=== PATIENT | female | born 1945 | race Caucasian/White ===

== ENCOUNTER 2025-04-19 22:20 | Inpatient (IN) | payer MEDICARE, OTHER, SELFPAY ==
[2025-04-19 19:39] VITALS: BP 140/93
[2025-04-19 19:41] VITALS: BP 140/93
[2025-04-19 20:00] VITALS: BP 149/67
--- NOTE | 2025-04-19 20:20 | ED.GENMED ---
History of Present Illness
General
Chief Complaint: Fall
Source: patient and group home records
Exam Limitations: none
Time Seen by Provider: 04/19/25 19:50
Nursing documentation reviewed up to this point in time: agreed with
History of Present Illness
History of Present Illness:
The patient is a pleasant 80-year-old female with a past medical history of dementia who experienced an unwitnessed fall. Patient complains of left hip pain. She denies neck pain and back pain. She denies headache. She is unable to remember what
happened. Patient appears well and comfortable.
Past History
Past History
ED Past Medical History: CVA, Hypercholesterolemia and Other (dementia)
ED Past Surgical History: Other
Social History
Tobacco: Other
Alcohol: Other
Drug: None
Personal: Other
Living: group home
Employment: Other
Family History
Family History: Other
Review of Systems
Review of Systems
Allergies reviewed?: Yes
Unable to obtain full review of systems at this time due to: dementia
All Other Systems: Not applicable (Limited due to dementia)
Musculoskeletal: Reports joint pain (Left hip)
Phy Exam
Physical Exam
Physical Exam:
Physical Exam
General: no apparent distress, not acutely ill. Atraumatic appearing face and head
Neck: supple. Nontender C-spine. Full range of neck without any sign of pain
Heart: s1/s2 regular rate and rhythm, normal chest wall tenderness. No vertebral spine tenderness
Lungs: no acute respiratory distress. clear bilaterally
Abdomen: Soft, nontender
Neuro: Alert, nonfocal, oriented to self only
Skin: no rash
Psychiatric: well kept. interactive and cooperative
Extremities: Nontender bilateral upper extremities. Left lower extremity is externally rotated and shortened
Course
Orders/Labs/Results
Orders:
Orders
04/19/25 Breakfast
Regular
At Your Request: Limited Participation
Does patient need a safe tray?: No
04/19/25 19:45
CR Hip - LT w/wo Pel 2-3 Vw* Urgent
Comment:
Reason For Exam: fall/pain
Include a pelvis x-ray?: Yes
04/19/25 20:19
Electrocardiogram (*1) Urgent
Reason for Study: PreOp
CT Head W/o Iv Contrast Urgent
Comment:
Reason For Exam: possible head injury
EKG- Treatment ONCE
04/19/25 21:11
Complete Blood Count/With Diff Urgent
Comprehensive Metabolic Panel Urgent
04/19/25 21:35
Admit/Transfer Patient As Directed
Co-Sign Provider:
Level of Care: Inpatient admission
Assign to:: Medical/Surgical
Physician / Group: [facility]
Diagnosis: Hip Fracture
Reason for Hospitalization: Hip Fracture
Expected length of stay greater than two midnights?: Yes
ELOS- Estimated Length of Stay in days: 3
I certify the patient meets the requirements for IP care: Yes
PRN Pain Medication Management As Directed
May give lesser potent ordered pain med per pt: Yes
preference::
Protocol:: Medication orders for pain may be administered in a
manner that supports deferring to patient preference
when the pt is:
- Requesting an ordered lesser potent pain medication.
Least to most potent pain medications are defined
as: acetaminophen < NSAID < tramadol < opioids
(morphine, oxycodone, hydromorphone).
- Requesting a lesser dose of the same medication IF
ORDERED.
- Requesting a less intrusive route of administration
if both routes are prescribed by the provider (PO <
IV).
04/19/25 21:36
Code Status As Directed
Resuscitation Status: Full Code
04/19/25 22:49
Acetaminophen [Tylenol] 650 mg PO Q4HPRN PRN
HYDROmorphone [Dilaudid] 0.25 mg IV Q3HPRN PRN
Melatonin 3 mg PO HS
Oxycodone [Roxicodone] 5 mg PO Q4HPRN PRN
04/19/25 22:49
ORTHOPEDIC CONSULT Routine
Consulting Provider: Marcos Morocho
Was physician already notified: Yes
Activity As Directed
Activity Level: Bedrest
Pneumatic Compression Sleeves As Directed
Type: Knee high
Vital Signs As Directed
Frequency: Per unit guidelines
DX Deep Vein Thrombosis Video Routine
04/20/25 Breakfast
NPO
Allow oral meds: Yes
Allow clear liquids: Sips of Clears
04/20/25 08:00
Docusate W/Senna [Senokot-S] 1 tablet PO BID
Donepezil HCl [Aricept] 10 mg PO DAILY
04/21/25 06:00
Basic Metabolic Panel IN AM
Complete Blood Count/No Diff IN AM
Abnormal Lab Results
04/19/25
21:11
WBC 12.1 H 10^3/uL
(4.8-10.8)
Absolute Neuts (auto) 10.5 H 10^3/uL
(1.4-6.5)
Absolute Lymphs (auto) 0.8 L 10^3/uL
(1.2-3.4)
Absolute Monos (auto) 0.8 H 10^3/uL
(0.1-0.6)
Neutrophils % 86.7 H %
(42.2-75.2)
Lymphocytes % 6.4 L %
(20.5-51.1)
Creatinine 0.5 L mg/dL
(0.6-1.0)
Glucose 167 H mg/dl
(70-99)
04/19/25 21:11
04/19/25 21:11
Vital Signs
Initial and Last Documented VS:
Initial Vital Signs
Temp Pulse Resp BP Pulse Ox
99.0 F 80 18 140/93 96
04/19/25 19:39 04/19/25 19:39 04/19/25 19:39 04/19/25 19:39 04/19/25 19:39
Last Documented Vital Signs
Temp Pulse Resp BP Pulse Ox
98.3 F 75 17 151/74 96
04/19/25 22:40 04/19/25 22:40 04/19/25 22:40 04/19/25 22:40 04/19/25 22:40
MDM/Problems Addressed
Differential Diagnosis Includes:
Closed head injury, left hip fracture, left hip contusion, pelvic fracture
MDM/Problems Addressed:
Patient presents with acute left hip pain after fall
Chronic conditions affecting care: HTN
Acute Exacerbation and/or Progression of Chronic Illness:
Patient is acutely hypertensive, likely due to anxiety being in the ED
*Radiology
Radiology exam reviewed: preliminary read by ED provider (Left hip x-ray reviewed by me. Left hip fracture seen by me) and radiology read reviewed
*Pulse Oximetry
SaO2: 96
Oxygen Mode of Delivery: Room air
Patient hypoxic: no
*EKG
Interpreted by ED Provider?: Yes
Interpretation: abnormal
Comparison EKG: no comparison EKG present
Rate: normal
Rhythm: sinus
[place]: normal axis
Interval: normal interval
QRS Pattern: normal QRS
Ischemia: non-specific ST changes
*Atmospheric Chemist Interpretation
Rate: normal
Interpretation: normal
Rhythm: sinus
*Critical Care Note
Total Time (30-74mins, 75-104mins- exclusive of procedures): Not Applicable
Data Reviewed
Source: patient and family (Spoke to son over the phone to let him know that his mom needed to be admitted for hip hip fracture and likely surgery)
Patient Management
Social determinants of health affecting care: Living situation and Strong social support
Discussion with other providers: Hospitalist and Other (Dr. Cooper from orthopedics made aware patient and fracture)
ED Attending Note
-
Portions of this chart may have been created with voice recognition software.� Occasional wrong word or��sound alike� substitutions may have occurred due to the inherent limitations of voice recognition software.
Discharge Plan
Departure
Patient Disposition: Admit
Date of Disposition: 04/19/25
Time of Disposition: 21:07
Admit to: Med/Surg
Presentation/result/management discussed w/ accepting MD/DO: Hospitalist
Patient with high blood pressure during this ER visit?: Yes
Condition: Good
Covid-19: Not Applicable
Discharge Problem:
Closed fracture of left hip
Interventions
Interventions:
*Risk Screen - Suicide Last Done: 04/19/25 19:38
*General Assessment Last Done: 04/19/25 20:02
*Neglect/Abuse Screening Last Done: 04/19/25 19:38
*ED- Fall Risk Assessment Last Done: 04/19/25 20:01
*ED COVID-19 Vaccine History Last Done: 04/19/25 20:01
*ED Influenza Vaccine History Last Done: 04/19/25 20:01
*Nursing Disposition Last Done: 04/19/25 22:45
ED-Musculoskeletal Assessment Last Done: 04/19/25 19:44
ED- Neurological Assessment Last Done: 04/19/25 19:44
ED-Skin Assessment Last Done: 04/19/25 19:44
Discharge Date and Time
Discharge Date/Time: 04/19/25 22:45
[2025-04-19 21:00] VITALS: BP 146/81
--- NOTE | 2025-04-19 21:18 | HPS.HSE ---
Addendum entered and electronically signed by Matthew Cortés DO 04/19/25 22:02:
Patient seen and examined independently. Agree with findings and plan as set forth by Erica Lennon PA-C.
Patient is an 80y F with PMH significant for senile dementia who presents to ED from local [facility] for evaluation after fall. Patient reportedly had unwitnessed fall x 2 since Sunday (when she was newly admitted to [facility]). Staff concerned for
leg-length discrepancy and patient sent to the ED for evaluation.
Patient with significant / pleasant dementia and is unable to contribute in any meaningful fashion to this history.
Ass:
Left Hip Fracture
Falls at [facility]
Senile Dementia
Plan:
Admit for further evaluation and treatment.
Only chronic health issue is dementia.
EKG / labs unremarkable.
Patient is at average risk for complications compared to an otherwise healthy individual of her advanced age.
Benefits of planned procedure outweigh the potential risks and patient is OK to proceed to OR without additional pre-op evaluation(s).
Pain control / supportive care in the interim.
Monitor for any evidence of acute delirium / agitation during hospital stay.
Post-op PT, OT, etc.
Original Note:
Family Physician
-
Family Physician: Yvette High
Chief Complaint
-
Fall with Left Hip Pain
History of Present Illness
Patient is an 80 y/o female past medical history of dementia who presents with left hip pain following a fall. Patient is unable to provide any history. She is a new resident at [facility], admitted on April 17. Patient sustained two
unwitnessed falls. She is now complaining of left hip pain, and there was concern from staff that the left leg seemed slightly shortened, [facility] Work-up in ED revealed a left hip fracture.
Medical History
Past Medical History
Past Medical History: Reports Other
Additional Past Medical History:
Dementia
Past Surgical History: Reports Other (Unknown)
Social History
Unable to obtain full social history at this time due to: Dementia
Living: Other ([facility])
Family History
Family History: Unable to Obtain
Allergies / Home Medications
Allergies reflects when Allergies were last updated in [facility].
Home Medications with original date entered in [facility]
Allergy/Medication List:
Allergies
Allergy/AdvReac Type Severity Reaction Status Date / Time
No Known Allergies Allergy Unverified 04/19/25 21:31
Home Medications
donepezil 10 mg tablet 10 mg PO DAILY 04/19/25
melatonin 3 mg tablet 3 mg PO HS 04/19/25
Review of Systems
-
Unable to obtain full review of systems at this time due to: Dementia
Physical Exam
Vital Signs
Vital Signs
Temp Pulse Resp BP Pulse Ox
99.0 F 67 14 146/81 96
04/19/25 19:39 04/19/25 21:00 04/19/25 21:00 04/19/25 21:00 04/19/25 20:20
Physical Exam
General: Comfortable and Conversant
HEENT: Anicteric and Moist mucous membranes
Respiratory: Clear and Non Labored Respirations
Cardiac: S1/S2 and Regular Rhythm
GI: Soft and Non Tender
Musculoskeletal: No Clubbing, No Cyanosis, No Edema and Other (Left leg appears slightly shortened and externally rotated)
Skin: Warm and Dry
Neuro: Awake and Alert; No Oriented
Psych: Calm
Laboratory Results
-
Laboratory Tests
04/19/25
21:11
WBC 12.1 H
Hgb 14.7
Hct 42.4
Plt Count 163
Sodium 137
Potassium 3.8
Chloride 105
Carbon Dioxide 25
BUN 13
Creatinine 0.5 L
Glucose 167 H
Hip X-Ray:
1. ACUTE NONDISPLACED SUBCAPITAL FRACTURE of the LEFT FEMORAL NECK.
2. Minimal bilateral osteoarthritis of the hips.
3. Diffuse bone demineralization.
Head CT:
1. 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
2. Mild to moderate cerebellar atrophy.
3. Mild periventricular white matter leukoaraiosis.
Data Reviewed
-
Diagnostic Radiology: Report Reviewed by me
CT Scan: Report Reviewed by me
Lab Data: Labs Reviewed by me
Impression/Plan
-
Left Hip Fracture
-Consult Orthopedic Surgery
-Will keep NPO after midnight for possible OR tomorrow
-Continue pain control with Tylenol, Oxycodone and Dilaudid
-Start bowel regimen
Dementia, unknown type, possibly Alzheimer's
-Continue donepezil
-Monitor for mood/behavior changes during hospitalization
DVT proph: SCDs
Code Status: Full Code
[2025-04-19 21:19] LABS: Hematocrit 42.4 % (37.0-47.0); Hemoglobin 14.7 g/dL (12.0-16.0); Mean Corp Hgb Conc. 34.7 g/dL (33.0-37.0); Mean Corpuscular Volume 88.9 fL (81.0-99.0); Nucleated Red Blood Cells % 0 %; Platelet Count 163 10^3/uL (130-400); Red Cell Dist. Width 12.5 % (11.5-14.5)
[2025-04-19 21:35] LABS: ALT (SGPT) 20 U/L (0-35); AST (SGOT) 25 U/L (14-36); Albumin 4.5 g/dl (3.5-5.0); Alkaline Phosphatase 64 U/L (38-126); Blood Urea Nitrogen 13 mg/dl (7-17); Calcium 9.8 mg/dl (8.4-10.2); Carbon Dioxide 25 mmol/L (22-30); Chloride 105 mmol/L (98-107); Glucose 167 mg/dl (70-99); Potassium 3.8 mmol/L (3.5-5.1); Sodium 137 mmol/L (135-145); Total Protein 7.2 g/dl (6.3-8.2); eGFR > 60.00
[2025-04-19 22:00] VITALS: BP 96/82
[2025-04-19 22:40] VITALS: BP 151/74
[2025-04-19] MEDS: MELATONIN 3 MG PO (23:48)
[2025-04-20] VITALS (10 sets, daily range): BP systolic 99–150; BP diastolic 49–103
--- NOTE | 2025-04-20 00:13 | PTCARENOTE ---
pt rec'vd from ER 22:50, pt non compliant, angry and unwilling to answer admission questions. Pt vs stable, given sips of juice and after emotional support pt answered admission questions that she could recall hx dx senile dementia. Denies pain, no
visible injuries trace edema to left hip.
--- NOTE | 2025-04-20 06:29 | CON.ORTHO ---
Addendum entered and electronically signed by Marcos Morocho MD 04/20/25 14:05:
I evaluated the patient at bedside and agree with above note. 80F with history of dementia presents after sustaining a fall. She was noted in ED to have displaced left femoral neck fracture. I reviewed the imaging including left hip and pelvis
xrays. I discussed with the patient and her son Yordy Flores about treatment options including nonoperative and operative treatment. Shared decision was to proceed with left hip hemiarthroplasty to reduce pain and permit early mobilization.
Olvin Morocho MD
Original Note:
Consultation
-
Date/Time Consultation Requested: May 12
Date/Time Consultation Performed: May 12
Requesting Provider: MEI Lennon
Performing Provider: Carolyn Morocho
Reason for Consultation: LEFT hip fracture
Consultation - Orthopedics
History
History of Present Illness:
Patient is an 80 y/o female with PMH of dementia who presents with left hip pain following a fall. Patient is unable to provide any history. She is a new resident at [facility], admitted on 17 April. Patient sustained two unwitnessed falls. She
is now complaining of left hip pain, and there was concern from staff that the left leg seemed slightly shortened, thus prompting EMS to bring her to the emergency department. Work-up in ED revealed a left hip fracture, therefore we have been
consulted
Past Medical History:
Dementia
Past Surgical History:
Unknown
Social History:
Unable to obtain full social history at this time due to: Dementia
Living: Other ([facility])
Family History:
Non-contributory
ROS:
12 point negative except those mentioned in the HPI
Allergies / Home Medications
Allergy/AdvReac Type Severity Reaction Status Date / Time
No Known Allergies Allergy Unverified 04/19/25 21:31
�Medication �Instructions �Recorded
donepezil 10 mg tablet 10 mg PO DAILY 04/19/25
melatonin 3 mg tablet 3 mg PO HS 04/19/25
Vital Signs / Lab Results
Temp Pulse Resp BP Pulse Ox
98.3 F 75 17 151/74 96
04/19/25 22:40 04/19/25 22:40 04/19/25 22:40 04/19/25 22:40 04/19/25 22:40
04/19/25 21:11
04/19/25 21:11
Assessment / Plan
PE: Bedrest. Left hip skin intact. LLE short and ER. Discomfort about left hip to palpation (grimacing). Deferred ROM due to known fracture. Grimacing with logroll LLE. Calf soft, nontender. DNVI LLE
Xrays: LEFT femoral neck fracture
Impression: JIMENA
Plan: Discussed with patient's son/POA, Yordy, via phone. Unfortunately his mother sustained a left femoral neck fracture and an unwitnessed fall. Discussed all the operative and nonoperative management, including the RBAs of each approach. For
palliative reasons and to get her up and ambulatory to a reasonable baseline we have recommended a hemiarthroplasty of her left hip. Risks of surgery have been accepted and her son has elected to proceed with surgery based on surgeon and OR
availability. Tentative plan will be, possibly, today via Dr. Morocho. Surgical and blood consents have been RN witnessed (Sallie) and placed to the patient's chart. Operative site has been marked as the LEFT hip. Patient will remain NPO. T&S
requested. Orders placed for planned surgery today, if she is medically optimized. We discussed the postop and rehab course as well including the recommended THPs x 6 weeks. Dispo planning assist with CM appreciated. Again, based on scheduling and
availability of Dr. Morocho/OR we will look to proceed today. Will follow.
--- NOTE | 2025-04-20 08:03 | W.PN.HOSP.TC ---
Addendum entered and electronically signed by Melody Hamm MD 04/20/25 15:12:
I saw and evaluated the patient independently. I reviewed and discussed the resident�s note and agree with findings and plan as documented by Dr. Campoverde.
GENERAL: well developed, well nourished, female in no apparent distress
HEENT: NC/AT--no O2 requirements
HEART: regular rate and rhythm, +S1, +S2
LUNGS : clear to auscultation bilaterally
ABDOM: soft, nontender, nondistended, + bowel sounds
EXT: no cyanosis, clubbing, or edema--left LE shortened and externally rotated
NEUROLOGIC: apparent dementia
Acute traumatic Left Hip Fracture from fall--presumed mechanical as unable to ascertain any prodrome as cause--apprec ortho--for surgery today--will need PT/OT post op--likely will need SNF prior to returning to [facility]--pain control and bowel
regimen
Dementia, unknown type, possibly Alzheimer's--Continue donepezil--Monitor for mood/behavior changes during hospitalization
Insomnia� Continue melatonin
DVT proph-- SCDs
Code Status-- Full Code
Original Note:
Today's Communication/Plan
-
Hopefully the orthopedics team is able to operate on the patient today, pending their OR schedule. Patient has been n.p.o. since midnight and is on maintenance fluids.
Family was advised by case repairer that they should make a backup plan for if [facility] does not accept Ms. Leatha Flores back after surgery. Family was advised to pick some skilled facilities for the case repairer to pursue.
Assessment / Plan
Assessment / Plan
Impression
Ms. Leatha Flores is an 80 y/o female with a PMH notable for dementia, CVA, HLD, who presents from [facility] (dementia unit) with left hip pain following a fall. Hip X-Ray demonstrated ACUTE NONDISPLACED SUBCAPITAL FRACTURE of the LEFT FEMORAL
NECK.
Patient is unable to provide any history. She is a new resident at [facility], admitted on April 17. Patient sustained two unwitnessed falls. She is now complaining of left hip pain, and there was concern from staff that the left leg seemed
slightly shortened, thus prompting EMS to bring her to the emergency department. Work-up in ED revealed a left hip fracture.
Hip X-Ray:
1. ACUTE NONDISPLACED SUBCAPITAL FRACTURE of the LEFT FEMORAL NECK.
2. Minimal bilateral osteoarthritis of the hips.
3. Diffuse bone demineralization.
Head CT:
1. 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
2. Mild to moderate cerebellar atrophy.
3. Mild periventricular white matter leukoaraiosis.
Plan
Left Hip Fracture
-NPO since midnight 04/20/2025 for possible OR today. NSS 1 L at 100 ml/hr
-Continue pain control with Tylenol, Oxycodone and Dilaudid
-Start bowel regimen: MiraLAX 17 g p.o. daily, Senokot 1 tablet p.o. twice daily, Dulcolax 5 mg p.o. daily as needed
Orthopedics c/s
- Discussed with patient's son/POA, Yordy, via phone. Discussed all the operative and nonoperative management, including the RBAs of each approach. For palliative reasons and to get her up and ambulatory to a reasonable baseline we have recommended
a hemiarthroplasty of her left hip. Risks of surgery have been accepted and her son has elected to proceed with surgery based on surgeon and OR availability.
- Surgical and blood consents have been RN witnessed (Sallie) and placed to the patient's chart.
- Operative site has been marked as the LEFT hip. Patient will remain NPO. T&S requested.
- Orders placed for planned surgery today, if she is medically optimized.
- We discussed the postop and rehab course as well including the recommended THPs x 6 weeks.
- Dispo planning assist with CM appreciated.
- Based on scheduling and availability of Dr. Morocho/OR we will look to proceed today.
Dementia, unknown type, possibly Alzheimer's
-Continue donepezil
-Monitor for mood/behavior changes during hospitalization
Insomnia
� Continue melatonin
DVT proph: SCDs
Code Status: Full Code
Anticipated Discharge: > 48 hours
Subjective/Interval History
-
Date of Service: April 20, 2025
No acute events overnight. Patient was lying comfortably in bed this morning. She denied pain and was not oriented to her situation. She was oriented to person and place. Her speech had loose association. Could not reliably interview her.
Objective Data
-
Labs:
Laboratory Results
04/19/25
21:11
WBC 12.1 H
Hgb 14.7
Hct 42.4
Plt Count 163
Sodium 137
Potassium 3.8
Chloride 105
Carbon Dioxide 25
BUN 13
Creatinine 0.5 L
Glucose 167 H
Calcium 9.8
Total Bilirubin 1.0
AST 25
ALT 20
Alkaline Phosphatase 64
Vital Signs:
Vital Signs
Temp Pulse Resp BP Pulse Ox
98.3 F 75 17 151/74 96
04/19/25 22:40 04/19/25 22:40 04/19/25 22:40 04/19/25 22:40 04/19/25 22:40
I&O
04/19/25 04/20/25 04/21/25
05:59 06:59 06:59
Intake Total 120 / 120
Balance 120 / 120
Review of Systems
-
Unable to obtain full review of systems at this time due to: Dementia
History Source: Patient
Physical Exam
-
General: Well Developed, Well Nourished, No Apparent Distress, Comfortable and Conversant
HEENT: Normocephalic, Atraumatic, Anicteric, Nose Appears Normal and Ears Appear Normal
Respiratory: Clear to Auscultation
GI: Soft, Nontender, Nondistended and Normal Bowel Sounds
Musculoskeletal: No Clubbing, No Cyanosis, No Edema and Other (Left hip was marked)
Skin: Warm and Dry
Neuro: Awake and Alert
Psych: Calm and Apparent Dementia
[2025-04-20] MEDS: SENOKOT-S PO (08:12)
[2025-04-20] MEDS: ARICEPT 10 MG PO (08:12)
[2025-04-20] MEDS: DILAUDID 0.25 MG IV ×2 (08:15→23:54)
[2025-04-20 11:55] LABS: Hematocrit 42.9 % (37.0-47.0); Hemoglobin 14.5 g/dL (12.0-16.0); Mean Corp Hgb Conc. 33.8 g/dL (33.0-37.0); Mean Corpuscular Volume 90.3 fL (81.0-99.0); Platelet Count 142 10^3/uL (130-400); Red Cell Dist. Width 12.4 % (11.5-14.5)
[2025-04-20 12:12] LABS: INR 1.11; PT 14.7 Sec (11.4-14.6)
[2025-04-20 12:13] LABS: APTT 29.3 Sec (23.4-35.0)
[2025-04-20 12:21] LABS: Blood Urea Nitrogen 10 mg/dl (7-17); Calcium 9.4 mg/dl (8.4-10.2); Carbon Dioxide 25 mmol/L (22-30); Chloride 107 mmol/L (98-107); Glucose 121 mg/dl (70-99); Potassium 3.8 mmol/L (3.5-5.1); Sodium 141 mmol/L (135-145); eGFR > 60.00
[2025-04-20] MEDS: NSS 1000 IV (13:01)
--- NOTE | 2025-04-20 15:14 | CM ---
Patient seen at bedside with physicians on . Patient was a [facility] for 24 hours and fell per patient family. Patient for surgery per physician. CM called to facility to clarify patient status and left VM. Patient son indicated that patient
was able to ambulate prior to fall with no assistive devices. CM will continue to follow for discharge planning needs.
Plan; SNF vs personal care pending medical treatment plan
--- NOTE | 2025-04-20 17:34 | OR.RPT ---
Operative Report
Operative Report
Orthopaedic Surgery Operative Note
DATE OF OPERATION: 04/20/2025
PREOPERATIVE DIAGNOSES: Displaced femoral neck fracture, left
POSTOPERATIVE DIAGNOSES: Same
OPERATION PERFORMED: Left hip hemiarthroplasty
SURGEON: Marcos Morocho MD
PHOTOGRAPHIC PROCESS SCREEN MAKER: Melinda Lao PA-C who helped with patient and limb positioning and retraction
ANESTHESIA: General
COMPLICATIONS: None.
ESTIMATED BLOOD LOSS: 100 mL.
DRAINS: None
SPECIMEN: None
FINDINGS: Displaced fracture of the femoral neck
IMPLANTS: [employer] stem size 13 extended offset, Size 44 Endo unipolar head, DJO bone cement, small cement restrictor, distal centralizer
INDICATIONS: The patient presented to the emergency department after a fall sustained at her [facility] facility with new onset hip pain. Xrays showed a displaced left femoral neck fracture. I discussed treatment options with the patient's family
and discussed that based on the degree of displacement that fixation of the fracture may have a high risk of complication and failure. I discussed surgical treatment with arthroplasty. Based on the patient's age and activity level, shared decision
was to proceed with hemiarthroplasty. I reviewed the risks, benefits, and alternatives of various treatment options. The family understood the risks which included, but were not limited to, bleeding, infection, failure to relieve pain, more pain
than preop, damage to blood vessels and nerves, need for reoperation, mechanical failure of the implants, wound healing problems, stiffness, instability, blood clot, pulmonary embolism, myocardial infarction, pneumonia, arrhythmia, CVA, and .
They accepted these risks and wished to proceed. All questions were answered, and informed consent was obtained.
PROCEDURE IN DETAIL:
The patient was identified in the preoperative holding area. The left hip was identified as the operative site. The patient was taken in the operating room and transferred to the operative table. General anesthesia was performed. IV antibiotics and
tranexamic acid were administered. The patient was placed in the lateral position with Stulberg hip positioners. Axillary roll was placed. The down leg was well padded. All bony prominences were well padded. The operative limb was prepped and draped
in the usual sterile fashion.
Time out was performed. A posterolateral approach to the hip was used. The skin incision was centered over the greater trochanter. This was taken down sharply through subcutaneous tissues. Meticulous hemostasis was achieved throughout the case with
electrocautery. We split the fascia marija in line with skin incision. I split the gluteus chun bluntly. We cauterized all crossing vessels as we split it. I palpated the sciatic nerve and made sure it was well posterior in the operative field. It
was protected throughout the case.
The posterior anatomy was distorted due to fracture hematoma and swelling. I performed a partial bursectomy to identify the short external rotators. The gluteus medius and minimus were identified and retracted anteriorly. I incised the piriformis
tendon and conjoint tendon at their insertions. These were tagged for later repair. I then performed a trapezoidal capsulotomy. The edges were tagged for later repair.
The femoral neck fracture was identified. The leg was flexed and internally rotated, and a fresh femoral neck cut was performed. The femur was translated anteriorly. Care was taken to preserve the labrum. The femoral head was carefully removed with
a bryant and a tenaculum. The head measured to be 44mm. The acetabulum was inspected and noted not to have marked degenerative changes. A trial head was placed in the acetabulum and size 44 had appropriate fit and suction fit.
Attention was turned to the femur. Box osteotome and Charnley awe were used to open the canal. The femur was sequentially broached to size 13 which had appropriate fit and fill. A trial head was placed with extended offset neck and the hip was
reduced. Leg length and offset were checked and found to be appropriate. The hip was taken through complete range of motion and found to be stable in extension, the position of sleep, and at 90 degrees of flexion and internal rotation.
Trials were removed and the femoral canal was prepared with irrigation and ribbon gauze packing sequentially. A cement restrictor was placed into the femoral canal 1cm distal to the tip of the femoral stem. This was measured off the trial femoral
stem. Once the femoral canal was prepared, the cement was mixed. Once doughy in consistency, the cement was pressurized into the canal with a cement gun. The stem was then carefully inserted into the canal with care to minimize rotation or
micromotion. Excess cement was removed. Once the cement was polymerized, the joint was irrigated copiously. The acetabulum was inspected to be free of cement particles and other debris. The final head was impacted onto clean and dry trunion and the
hip was reduced. Leg length and stability were checked again and found to be acceptable. The sciatic nerve was inspected and noted to be free of tension and uninjured.
A dilute betadine soak was performed for approximately 3 minutes, and then the hip was copiously irrigated. I repaired the capsule, piriformis, and conjoint tendon with #2 Ethibond to drill holes in the greater trochanter. Local anesthetic was
injected. The fascia marija was closed with #1 PDS in running fashion. The subcutaneous tissues were closed with 2-0 PDS in running fashion. The skin was reapproximated with 3-0 Monocryl subcuticular suture. I placed a Prineo dressing followed by a
Mepilex Ag dressing. The patient awoke from anesthesia without difficulty. Sponge and instrument counts were correct x2 at the end of the case.
I was present and participated in the entire procedure. The patient was sent to the recovery room in stable condition.
Olvin Morocho MD
[2025-04-20] MEDS: ASPIRIN 325 MG PO (18:41)
[2025-04-20] MEDS: BACTROBAN 2% OINTMENT 1 APPLIC NASAL (19:37)
[2025-04-20] MEDS: SENOKOT-S 1 TABLET PO (19:38)
[2025-04-20] MEDS: MELATONIN PO (22:01)
[2025-04-20] MEDS: ANCEF 5 IV (23:53)
[2025-04-21 03:10] VITALS: BP 134/77
[2025-04-21] MEDS: DILAUDID 0.25 MG IV (05:40)
[2025-04-21 07:12] LABS: Hematocrit 34.0 % (37.0-47.0); Hemoglobin 11.9 g/dL (12.0-16.0); Mean Corp Hgb Conc. 35.0 g/dL (33.0-37.0); Mean Corpuscular Volume 89.7 fL (81.0-99.0); Platelet Count 141 10^3/uL (130-400); Red Cell Dist. Width 12.7 % (11.5-14.5)
[2025-04-21 07:41] VITALS: BP 145/83
[2025-04-21 07:57] LABS: Blood Urea Nitrogen 16 mg/dl (7-17); Calcium 8.9 mg/dl (8.4-10.2); Carbon Dioxide 26 mmol/L (22-30); Chloride 107 mmol/L (98-107); Glucose 151 mg/dl (70-99); Potassium 4.0 mmol/L (3.5-5.1); Sodium 136 mmol/L (135-145); eGFR > 60.00
[2025-04-21] MEDS: SENOKOT-S 1 TABLET PO ×2 (08:38→19:40)
[2025-04-21] MEDS: MIRALAX 17 GRAMS PO (08:38)
[2025-04-21] MEDS: ARICEPT 10 MG PO (08:38)
[2025-04-21] MEDS: ASPIRIN 325 MG PO (08:38)
[2025-04-21] MEDS: BACTROBAN 2% OINTMENT 1 APPLIC NASAL ×2 (08:39→19:40)
[2025-04-21] MEDS: ANCEF 5 IV (08:39)
--- NOTE | 2025-04-21 08:48 | W.PN.ORTHO ---
Today's Communication / Plan
-
POD #1 s/p left hip hemiarthroplasty
-WBAT with walker.
-Posterior THPs x 6-8 weeks. PT/OT as able.
-Aspirin 325 mg po daily for DVT prophylaxis.
-Pain control. minimize opioids.
-Dressing to remain in place x 2 weeks.
-F/u in office in 2 weeks.
-Appreciate case management and PT efforts in d/c planning/recommendations.
-Ortho to follow along for now.
Assessment
.
Distal Motor Intact: Yes
Dressing:
Clean, dry and intact.
Assessment:
POD #1 s/p left hip hemiarthroplasty
-WBAT with walker.
-Posterior THPs x 6-8 weeks. PT/OT as able.
-Aspirin 325 mg po daily for DVT prophylaxis.
-Pain control. minimize opioids.
-Dressing to remain in place x 2 weeks.
-F/u in office in 2 weeks.
-Appreciate case management and PT efforts in d/c planning/recommendations.
-Ortho to follow along for now.
Plan
.
Surgery / Date: 04/20/25 left hip hemiarthroplasty - Dr. Morocho
DVT Prophylaxis: Aspirin
Activity:
Out of bed.
PT/OT
Subjective
.
.:
Patient resting comfortably in bed. Denies any pain at rest, but did express some discomfort during exam. Oriented to self only.
Vital Signs and Labs
.
Vital Signs and Labs:
Lab Results
04/21/25 06:43
04/21/25 06:43
Temp Pulse Resp BP Pulse Ox
99.1 F 85 16 145/83 97
04/21/25 07:41 04/21/25 07:41 04/21/25 07:41 04/21/25 07:41 04/21/25 07:41
PT 14.7 Sec (11.4-14.6) H 04/20/25 11:27
INR 1.11 04/20/25 11:27
Physical Exam
-
Left hip: Primaseal dressing now in place (mepilex placed post op). No drainage. Minimal swelling and bruising. Gentle ROM with discomfort in hip. Calf soft and non tender to palpation. N/v intact distally.
--- NOTE | 2025-04-21 09:23 | W.PN.HOSP.TC ---
Addendum entered and electronically signed by Melody Hamm MD 04/21/25 16:11:
I saw and evaluated the patient independently. I reviewed and discussed the resident�s note and agree with findings and plan as documented by Dr. Campoverde.
GENERAL: well developed, well nourished, female in no apparent distress
HEENT: NC/AT--no O2 requirements
HEART: regular rate and rhythm, +S1, +S2
LUNGS : clear to auscultation bilaterally
ABDOM: soft, nontender, nondistended, + bowel sounds
EXT: no cyanosis, clubbing, or edema--post op left hip
NEUROLOGIC: apparent dementia
Acute traumatic Left Hip Fracture from fall--presumed mechanical as unable to ascertain any prodrome as cause--apprec ortho--s/p surgery 04/20/25-- PT/OT post op--likely will need SNF --pain control and bowel regimen
Dementia, unknown type, possibly Alzheimer's--Continue donepezil--Monitor for mood/behavior changes during hospitalization
Insomnia� Continue melatonin
DVT proph-- SCDs
Code Status-- Full Code
D/C planning
Original Note:
Today's Communication/Plan
-
Progressing well postoperative day 1 after left hip fracture repair.
PT and OT recommended SNF
Assessment / Plan
Assessment / Plan
Impression
Ms. Leatha Flores is an 80 y/o female with a PMH notable for dementia, CVA, HLD, who presents from [facility] (dementia unit) with left hip pain following a fall. Hip X-Ray demonstrated ACUTE NONDISPLACED SUBCAPITAL FRACTURE of the LEFT FEMORAL
NECK.
Patient is unable to provide any history. She is a new resident at [facility], admitted on April 17. Patient sustained two unwitnessed falls. She is now complaining of left hip pain, and there was concern from staff that the left leg seemed
slightly shortened, thus prompting EMS to bring her to the emergency department. Work-up in ED revealed a left hip fracture.
Hip X-Ray:
1. ACUTE NONDISPLACED SUBCAPITAL FRACTURE of the LEFT FEMORAL NECK.
2. Minimal bilateral osteoarthritis of the hips.
3. Diffuse bone demineralization.
Head CT:
1. 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
2. Mild to moderate cerebellar atrophy.
3. Mild periventricular white matter leukoaraiosis.
Plan
Left Hip Fracture
- Surgical repair 04/20/2025
-Continue pain control with Tylenol, Oxycodone and Dilaudid
- Bowel regimen: MiraLAX 17 g p.o. daily, Senokot 1 tablet p.o. twice daily, Dulcolax 5 mg p.o. daily as needed
Orthopedics c/s
- Discussed with patient's son/POA, Yordy, via phone. Discussed all the operative and nonoperative management, including the RBAs of each approach. For palliative reasons and to get her up and ambulatory to a reasonable baseline we have recommended
a hemiarthroplasty of her left hip. Risks of surgery have been accepted and her son has elected to proceed with surgery based on surgeon and OR availability.
- Surgical and blood consents have been RN witnessed (Sallie) and placed to the patient's chart.
- We discussed the postop and rehab course as well including the recommended THPs x 6 weeks.
- Dispo planning assist with CM appreciated.
Postop
� Monitor for uop, fever/vitals, atelectasis, signs of DVT, anemia, pain
� PT and OT recommended SNF
Dementia, unknown type, possibly Alzheimer's
-Continue donepezil
-Monitor for mood/behavior changes during hospitalization
Insomnia
� Continue melatonin
DVT proph: aspirin 325 mg po daily
Code Status: Full Code
Anticipated Discharge: > 48 hours
Subjective/Interval History
-
Date of Service: April 21, 2025
Objective Data
-
Labs:
Laboratory Results
04/21/25
06:43
WBC 15.7 H
Hgb 11.9 L
Hct 34.0 L
Plt Count 141
Sodium 136
Potassium 4.0
Chloride 107
Carbon Dioxide 26
BUN 16
Creatinine 0.6
Glucose 151 H
Calcium 8.9
Vital Signs:
Vital Signs
Temp Pulse Resp BP Pulse Ox
99.1 F 85 16 145/83 97
04/21/25 07:41 04/21/25 07:41 04/21/25 07:41 04/21/25 07:41 04/21/25 07:41
I&O
04/20/25 04/21/25 04/22/25
06:59 06:59 06:59
Intake Total 120 / 120 580 / 580
Balance 120 / 120 580 / 580
Review of Systems
-
Unable to obtain full review of systems at this time due to: Dementia
History Source: Patient
Physical Exam
-
General: Well Developed, Well Nourished, No Apparent Distress, Comfortable and Cachectic
HEENT: Normocephalic, Atraumatic, Anicteric, Nose Appears Normal and Ears Appear Normal
Respiratory: Clear to Auscultation
Cardiac: Regular Rhythm and S1/S2
GI: Soft, Nontender, Nondistended and Normal Bowel Sounds
Musculoskeletal: No Clubbing, No Cyanosis, No Edema and Other (Left hip with bandage with minimal strength)
Skin: Warm and Dry
Neuro: Awake and Alert
Psych: Calm
[2025-04-21 11:00] VITALS: BP 110/79
[2025-04-21 11:54] VITALS: BP 131/66; BP 138/70; PULSE 100; O2SAT 99
--- NOTE | 2025-04-21 16:49 | CM ---
Spoke with patient sons and referrals sent to [facility]. Son talking to [facility] and will update CM with additional referrals. tomorrow. CM will continue to follow for discharge planning needs.
Plan; SNF
[2025-04-21] MEDS: MELATONIN 3 MG PO (21:26)
[2025-04-21 23:18] VITALS: BP 119/76
--- NOTE | 2025-04-22 05:51 | W.PN.ORTHO ---
Today's Communication / Plan
-
POD #2 s/p left hip hemiarthroplasty
-WBAT with walker.
-Posterior THPs x 6-8 weeks. PT/OT as able.
-Aspirin 325 mg po daily for DVT prophylaxis.
-Pain control. minimize opioids.
-Dressing to remain in place x 2 weeks.
-F/u in office in 2 weeks.
-Appreciate case management and PT efforts in d/c planning/recommendations.
-Ortho surg will follow peripherally
Assessment
.
Distal Motor Intact: Yes
Dressing:
Clean, dry and intact.
Plan
.
Surgery / Date: 04/20/25 left hip hemiarthroplasty - Dr. Morocho
Activity:
Out of bed.
PT/OT
Subjective
.
.:
Patient resting comfortably.
Vital Signs and Labs
.
Vital Signs and Labs:
Temp Pulse Resp BP Pulse Ox
97.9 F 96 16 119/76 96
04/21/25 23:18 04/21/25 23:18 04/21/25 23:18 04/21/25 23:18 04/21/25 23:18
PT 14.7 Sec (11.4-14.6) H 04/20/25 11:27
INR 1.11 04/20/25 11:27
[2025-04-22 07:00] VITALS: BP 123/63
[2025-04-22 07:51] LABS: Hematocrit 31.1 % (37.0-47.0); Hemoglobin 10.6 g/dL (12.0-16.0); Mean Corp Hgb Conc. 34.1 g/dL (33.0-37.0); Mean Corpuscular Volume 89.1 fL (81.0-99.0); Nucleated Red Blood Cells % 0 %; Platelet Count 131 10^3/uL (130-400); Red Cell Dist. Width 12.8 % (11.5-14.5)
--- NOTE | 2025-04-22 08:17 | W.PN.HOSP.TC ---
Addendum entered and electronically signed by Melody Hamm MD 04/22/25 17:55:
I saw and evaluated the patient independently. I reviewed and discussed the resident�s note and agree with findings and plan as documented by Dr. Campoverde.
GENERAL: well developed, well nourished, female in no apparent distress--naked in bed--took off left hip dressing herself, crumbs from a brownie all over the bed
HEENT: NC/AT--no O2 requirements
HEART: regular rate and rhythm, +S1, +S2
LUNGS : clear to auscultation bilaterally
ABDOM: soft, nontender, nondistended, + bowel sounds
EXT: no cyanosis, clubbing, or edema--post op left hip
NEUROLOGIC: apparent dementia
Acute traumatic Left Hip Fracture from fall--presumed mechanical as unable to ascertain any prodrome as cause--apprec ortho--s/p surgery 04/20/25-- PT/OT post op-- will need SNF --pain control and bowel regimen
constipation--bowel regimen not working--needed suppository--send with dulcolax suppository and bowel regimen at d/c
Dementia, unknown type, possibly Alzheimer's--Continue donepezil--Monitor for mood/behavior changes during hospitalization
Insomnia� Continue melatonin
DVT proph-- SCDs
Code Status-- Full Code
OK for d/c
Original Note:
Today's Communication/Plan
-
� Monitor for BM. Trial glycerin suppository. Passed small, hard assisted BM
- Patient repeatedly removes surgical bandage and picks at incision. Nurses found that not applying the dressing is associated with the patient not picking at her incision. Glue dressing has been picked out and removed by the patient. Orthopedics
recommended soft restraints to prevent patient from removing bandage and glue dressing
Discharged patient on bowel regimen (opioid postop pain regimen) and aspirin 325 mg p.o. daily for DVT prophylaxis for 1 month.
Assessment / Plan
Assessment / Plan
Impression
Ms. Leatha Flores is an 80 y/o female with a PMH notable for dementia, CVA, HLD, who presents from [facility] (dementia unit) with left hip pain following a fall. Hip X-Ray demonstrated ACUTE NONDISPLACED SUBCAPITAL FRACTURE of the LEFT FEMORAL
NECK.
Patient is unable to provide any history. She is a new resident at [facility], admitted on April 17. Patient sustained two unwitnessed falls. She is now complaining of left hip pain, and there was concern from staff that the left leg seemed
slightly shortened, thus prompting EMS to bring her to the emergency department. Work-up in ED revealed a left hip fracture.
Hip X-Ray:
1. ACUTE NONDISPLACED SUBCAPITAL FRACTURE of the LEFT FEMORAL NECK.
2. Minimal bilateral osteoarthritis of the hips.
3. Diffuse bone demineralization.
Head CT:
1. 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
2. Mild to moderate cerebellar atrophy.
3. Mild periventricular white matter leukoaraiosis.
Plan
Left Hip Fracture
- Surgical repair 04/20/2025
-Continue pain control with Tylenol, Oxycodone and Dilaudid
- Bowel regimen: MiraLAX 17 g p.o. daily, Senokot 1 tablet p.o. twice daily, Dulcolax 5 mg p.o. daily as needed
Orthopedics c/s
- Discussed with patient's son/POA, Yordy, via phone. Discussed all the operative and nonoperative management, including the RBAs of each approach. For palliative reasons and to get her up and ambulatory to a reasonable baseline we have recommended
a hemiarthroplasty of her left hip. Risks of surgery have been accepted and her son has elected to proceed with surgery based on surgeon and OR availability.
- Surgical and blood consents have been RN witnessed (Sallie) and placed to the patient's chart.
- We discussed the postop and rehab course as well including the recommended THPs x 6 weeks.
- Dispo planning assist with CM appreciated.
Postop
� Monitor for BM. Trial glycerin suppository. Passed small, hard assisted BM
- Patient repeatedly removes surgical bandage and picks at incision. Nurses found that not applying the dressing is associated with the patient not picking at her incision. Glue dressing has been picked out and removed by the patient. Orthopedics
recommended soft restraints to prevent patient from removing bandage and glue dressing
- Monitor for fever/vitals, atelectasis, signs of DVT, pain
� PT and OT recommended SNF
� Monitoring hemoglobin: dropped from 14.5 preop, to 11.9 POD D #1, to 10.6 POD #2.
- Passed TOV (incontinent)
Dementia, unknown type, possibly Alzheimer's
-Continue donepezil
-Monitor for mood/behavior changes during hospitalization
Insomnia
� Continue melatonin
DVT proph: aspirin 325 mg po daily
Code Status: Full Code
Anticipated Discharge: Today
Subjective/Interval History
-
Date of Service: April 22, 2025
No acute events overnight.
No BM since surgery yet. Trial glycerin suppository.
Patient keeps removing surgery bandage and picks at wound. Nurse not repeatedly applying dressing anymore, as patient is not picking at wound when there's no dressing.
Objective Data
-
Labs:
Hematology and Coagulation - Last 24 hours
04/22/25 Range/Units
07:12
WBC 9.7 (4.8-10.8) 10^3/uL
RBC 3.49 L (4.20-5.40) 10^6/uL
Hgb 10.6 L (12.0-16.0) g/dL
Hct 31.1 L (37.0-47.0) %
MCV 89.1 (81.0-99.0) fL
MCH 30.4 (27.0-31.0) pg
MCHC 34.1 (33.0-37.0) g/dL
RDW 12.8 (11.5-14.5) %
Plt Count 131 (130-400) 10^3/uL
MPV 9.9 (7.4-10.4) fL
Abs Immat Gran (auto) 0.0 (0-0.05) 10^3/uL
Absolute Neuts (auto) 7.6 H (1.4-6.5) 10^3/uL
Absolute Lymphs (auto) 1.0 L (1.2-3.4) 10^3/uL
Absolute Monos (auto) 1.1 H (0.1-0.6) 10^3/uL
Absolute Eos (auto) 0.0 (0-0.7) 10^3/uL
Absolute Basos (auto) 0.0 (0-0.2) 10^3/uL
Immature Gran % 0.4 (0-0.5) %
Neutrophils % 77.7 H (42.2-75.2) %
Lymphocytes % 9.9 L (20.5-51.1) %
Monocytes % 11.6 H (1.7-9.3) %
Eosinophils % 0.3 (0-6) %
Basophils % 0.1 (0-2) %
Nucleated RBC % 0 %
Blood Gas and Chemistry - Last 24 hours
04/22/25 Range/Units
07:12
Sodium 140 (135-145) mmol/L
Potassium 3.8 (3.5-5.1) mmol/L
Chloride 105 (98-107) mmol/L
Carbon Dioxide 30 (22-30) mmol/L
BUN 13 (7-17) mg/dl
Creatinine 0.6 (0.6-1.0) mg/dL
eGFR > 60.00
Glucose 122 H (70-99) mg/dl
Calcium 9.1 (8.4-10.2) mg/dl
Total Bilirubin 0.8 (0.2-1.3) mg/dl
AST 29 (14-36) U/L
ALT 14 (0-35) U/L
Alkaline Phosphatase 60 (38-126) U/L
Total Protein 5.7 L D (6.3-8.2) g/dl
Albumin 3.3 L (3.5-5.0) g/dl
Vital Signs:
Vital Signs
Temp Pulse Resp BP Pulse Ox
98.3 F 86 16 123/63 95
04/22/25 07:00 04/22/25 07:00 04/22/25 07:00 04/22/25 07:00 04/22/25 07:00
I&O
04/21/25 04/22/25 04/23/25
06:59 06:59 06:59
Intake Total 580 / 580 240 / 240
Balance 580 / 580 240 / 240
Review of Systems
-
Unable to obtain full review of systems at this time due to: Dementia
Physical Exam
-
General: Well Developed, No Apparent Distress, Comfortable and Cachectic
HEENT: Normocephalic, Atraumatic, Anicteric, No Ptosis, Nose Appears Normal and Ears Appear Normal
Respiratory: Clear to Auscultation
Cardiac: Regular Rhythm and S1/S2
GI: Soft, Nontender, Nondistended and Normal Bowel Sounds
Musculoskeletal: No Clubbing, No Cyanosis, No Edema and Other (Surgical site uncovered, as patient repeatedly removes bandage.)
Skin: Warm and Dry
Neuro: Awake and Other
Psych: Calm, Apparent Dementia (Seun indifference) and Other (Unaware of pastry crumbs spilled all over her bed); Negative Intact Judgement/Insight
[2025-04-22 08:30] LABS: ALT (SGPT) 14 U/L (0-35); AST (SGOT) 29 U/L (14-36); Albumin 3.3 g/dl (3.5-5.0); Alkaline Phosphatase 60 U/L (38-126); Blood Urea Nitrogen 13 mg/dl (7-17); Calcium 9.1 mg/dl (8.4-10.2); Carbon Dioxide 30 mmol/L (22-30); Chloride 105 mmol/L (98-107); Glucose 122 mg/dl (70-99); Potassium 3.8 mmol/L (3.5-5.1); Sodium 140 mmol/L (135-145); Total Protein 5.7 g/dl (6.3-8.2); eGFR > 60.00
[2025-04-22] MEDS: SENOKOT-S 1 TABLET PO (08:47)
[2025-04-22] MEDS: ASPIRIN 325 MG PO (08:47)
[2025-04-22] MEDS: ARICEPT 10 MG PO (08:47)
[2025-04-22] MEDS: MIRALAX 17 GRAMS PO (08:47)
--- NOTE | 2025-04-22 12:15 | CM ---
Addendum entered by Abbey Gould 04/22/25 12:20:
please call [phone]/fax [phone] for patient report and fax.
Original Note:
Patient son updated and confirmed [facility] and placement for today pending physician assessment. Patient will need ambulance. Family asked to meet ambulance for transfer to 3:30pm. Patient son reviewed IMM with CM and verbally expressed understanding.
CM will continue to follow for discharge planning needs.
Plan; SNF; [facility]
[2025-04-22] MEDS: GLYCERIN SUPPOSITORY ADULT 1 SUPP RECTAL (13:21)
[2025-04-22 14:43] VITALS: BP 122/61
--- NOTE | 2025-04-22 15:07 | PTCARENOTE ---
Addendum entered by Melinda Amin RN 04/22/25 16:29:
Dressing applied on discharge. RN at [facility] made aware.
Original Note:
Patient keeps taking Left Hip dressing off. Have applied a dressing x 3 today. Patient also removing gown and foot pumps. When dressing off patient does not pick at site. Dr. Morocho made aware. Is ok with leaving it uncovered as long as patient does
not touch site. Will let the rehab know.
--- NOTE | 2025-04-22 16:53 | W.DCSUMMARY ---
Discharge Summary
Discharge Data
Date of Admission: 04/19/25
Date of Discharge: 04/22/25
Total time spent discharging patient (in min): 35
-
Pending Results: No
Hospital Course
Discharging Physician : Dr. Hamm and Dr. Campoverde
Disposition : SNF
Primary care physician : Yvette High
Principal Discharge diagnosis : Left hip fracture
Chronic Discharge diagnosis : Dementia
Hospital Course :
Ms. Leatha Flores is an 80 y/o female with a PMH notable for dementia, CVA, HLD, who presents from [facility] (dementia unit) with left hip pain following unwitnessed falls. Hip X-Ray demonstrated scratch subcapital fracture of the left femoral
neck.
Unable to obtain reliable history due to patient having dementia. She was a new resident at [facility], admitted on April 17. Patient sustained two unwitnessed falls. She complained of left hip pain, and there was concern from staff that the
left leg seemed slightly shortened, thus prompting EMS to bring her to the emergency department. Work-up in ED revealed a left hip fracture.
The orthopedics team called with patient's son Yordy who is the POA and Discussed operative and nonoperative management options, including the risks and benefits of each. For palliative reasons and to get her up and ambulatory to a reasonable
baseline. The orthopedics team recommended a hemiarthroplasty of her left hip. Risks of surgery were accepted and her son elected to proceed with surgery. They discussed the postop and rehab course as well including the recommended THPs x 6
weeks.
Ms. Flores underwent surgical repair 04/20/2025. Postop, Ms. Flores was monitored for fever, atelectasis, signs of DVT, anemia, and pain control. She passed the trial of void.
Her pain was controlled on Tylenol, Oxycodone, and Dilaudid. At bowel regimen was provided with MiraLAX 17 g p.o. daily, Senokot 1 tablet p.o. twice daily, Dulcolax 5 mg p.o. daily as needed. A glycerin suppository was able to achieve a small
assisted bowel movement. She was discharged on a bowel regimen, along with a Dulcolax suppository.
Ms. Flores repeatedly removed the Mepilex bandage and picked at incision (removing the glue dressing). Nurses found that not applying the dressing was associated with the patient not picking at her incision. Orthopedics recommended soft restraints
if the patient continues to remove the glue dressing.
Important imaging findings :
Hip X-Ray 04/20/2025:
1. ACUTE NONDISPLACED SUBCAPITAL FRACTURE of the LEFT FEMORAL NECK.
2. Minimal bilateral osteoarthritis of the hips.
3. Diffuse bone demineralization.
Head CT 04/19/2025:
1. 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
2. Mild to moderate cerebellar atrophy.
3. Mild periventricular white matter leukoaraiosis.
Procedure findings :
Left hip Bradly arthroplasty 05/17/2025: displaced fracture of femoral neck
Discharge Plan
-
Patient Disposition: Retirement/SNF
Discharge Diagnosis/Procedures: Left hip fracture
Dementia
Insomnia
Condition: Good
Diet: No restrictions
Activity: With assistance, As tolerated and With Walker
Additional Activity: Posterior hip precautions x 8 weeks
Driving Restrictions: No driving
Bathing Restrictions: OK to Shower
Wound Care: Maintain dressing until 2 weeks from date of surgery.
Referrals:
Yvette High DO [Family Provider, Family Practice]
Marcos Morocho MD [Active, Orthopedics]
Referral Note: Follow-up in office 2 weeks from date of surgery. Please contact the office to schedule
Additional Discharge Medication Instructions: For deep venous thrombosis prophylaxis after your orthopedic surgery, please take aspirin 325 mg daily for 1 month.
Since you have received an opioid (3 doses of hydromorphone 0.25 mg), you may be constipated. Please take your bowel regimen until you have bowel movement, and continue if you continue to have constipation. For the bowel regimen, you have been
provided with as needed Dulcolax suppository, MiraLAX, bisacodyl oral, and senna plus oral.
Please do not remove the bandage or pick at the glue dressing that the orthopedic surgeons place. If you do either, we recommend soft restraints, to help your surgical site heal.
Please keep the dressing on for 2 weeks until your follow-up with orthopedic surgeon Dr. Morocho in 2 weeks.
Prescriptions:
New
aspirin 325 mg Tablet
325 mg PO DAILY Qty: 30 0RF
oxycodone 5 mg Tablet
5 mg PO Q4HPRN PRN (Reason: severe pain) Qty: 10 0RF
oxycodone 5 mg Tablet
2.5 mg PO Q4HPRN PRN (Reason: moderate pain) Qty: 10 0RF
bisacodyl [Dulcolax (bisacodyl)] 10 mg suppository
10 mg [place] DAILY PRN (Reason: Constipation) Qty: 30 0RF
acetaminophen 325 mg Tablet
650 mg PO Q4HPRN PRN (Reason: mild pain/ fever>100.5F) Qty: 30 0RF
polyethylene glycol 3350 17 gram Powder In Packet
17 g PO DAILYPRN PRN (Reason: Constipation) Qty: 30 0RF
sennosides-docusate sodium [Senna Plus] 8.6-50 mg Tablet
1 tab PO BIDPRN PRN (Reason: Constipation) Qty: 30 0RF
bisacodyl 5 mg Tablet,Delayed Release (Dr/Ec)
5 mg PO DAILYPRN PRN (Reason: constipation) Qty: 3 0RF
Continued
donepezil 10 mg tablet
10 mg PO DAILY
melatonin 3 mg tablet
3 mg PO HS
Discharge Orders:
Discharge Patient (As Directed); Ordered 04/22/25
Ordered By: Danielle Capmoverde
Discharge Date and Time
Discharge Date/Time: 04/22/25 16:30
Print Language: OCCITAN
== END 2025-04-22 16:30 | DRG 522 ==
LOC: 2 SOUTH 22:20
PROVIDERS: Physician Assistant Medical; ADMITTING PHYSICIAN Hospitalist; ATTENDING PHYSICIAN Internal Medicine; CONSULT PHYSICIAN Orthopaedic Surgery; EMERGENCY PHYSICIAN Emergency Medicine; FAMILY PHYSICIAN Family Medicine
PROC: 0SRS0J9 Replacement of Left Hip Joint, Femoral Surface with Synthetic Substitute, Cemented, Open Approach (ICD-10-PCS; 2025-04-20)
DX: S72.002A Fracture of unspecified part of neck of left femur, initial encounter for closed fracture (principal); F02.818 Dementia in other diseases classified elsewhere, unspecified severity, with other behavioral disturbance; W19.XXXA Unspecified fall, initial encounter; G47.00 Insomnia, unspecified; E78.00 Pure hypercholesterolemia, unspecified; Z86.73 Personal history of transient ischemic attack (TIA), and cerebral infarction without residual deficits; K59.00 Constipation, unspecified; G30.9 Alzheimer's disease, unspecified
CPT/HCPCS: 70450; 73502; 80048; 80053; 85025; 85027; 85610; 85730; 86850; 86900; 86901; 93005; 97163; 97166; 97535; 99285; C1713; C1776

== ENCOUNTER → 2025-04-24 10:53 | Outpatient (REF) | payer OTHER, MEDICARE, SELFPAY ==
[2025-04-24 11:24] LABS: Hematocrit 31.1 % (37.0-47.0); Hemoglobin 10.1 g/dL (12.0-16.0); Mean Corp Hgb Conc. 32.5 g/dL (33.0-37.0); Mean Corpuscular Volume 94.0 fL (81.0-99.0); Nucleated Red Blood Cells % 0 %; Platelet Count 212 10^3/uL (130-400); Red Cell Dist. Width 12.5 % (11.5-14.5)
[2025-04-24 11:40] LABS: Blood Urea Nitrogen 15 mg/dl (7-17); Calcium 9.2 mg/dl (8.4-10.2); Carbon Dioxide 30 mmol/L (22-30); Chloride 103 mmol/L (98-107); Glucose 106 mg/dl (70-99); Potassium 3.6 mmol/L (3.5-5.1); Sodium 135 mmol/L (135-145); eGFR > 60.00
== END ==
LOC: OLABP 10:53
PROVIDERS: ATTENDING PHYSICIAN Family Medicine
DX: S72.002D Fracture of unspecified part of neck of left femur, subsequent encounter for closed fracture with routine healing (principal); E78.5 Hyperlipidemia, unspecified; F03.90 Unspecified dementia, unspecified severity, without behavioral disturbance, psychotic disturbance, mood disturbance, and anxiety; G47.00 Insomnia, unspecified
CPT/HCPCS: 36415; 80048; 85025